=== PATIENT | female | born 1960 | race Caucasian/White ===

== ENCOUNTER 2020-11-04 16:10 | Emergency (ER) | payer OTHER ==
[~2020-11-04] VITALS: Ht 170.1 cm; Wt 110.0 kg
--- NOTE | 2020-11-04 16:45 | ED Lower Extremity ---
General Chief Complaint: Lower Extremity Stated Complaint: PAIN IN RIGHT LEG Nursing Triage Note: Pt wheeled into ER via wheelchair with complaint of lower right leg pain. 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 Pt states that she had excrutiating pain at a 10/10 until she was able to stop bearing weight on it. Pt has no obvious deformity, and states that pain is below the knee. Pt has good distal pulse. Nursing Sepsis Screen: No Definite Risk Source: patient Exam Limitations: no limitations (KELBY SEYMOUR APRN) History of Present Illness Date Seen by Provider: Nov 04, 2020 Time Seen by Provider: 16:45 Initial Comments To ER with severe right leg pain at the knee. When at rest she has no pain but with extension, flexion or weightbearing she has severe pain.. She had all of her weight on her right leg when she twisted to put an animal into the cage. 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 Onset: just prior to arrival Severity: moderate Pain/Injury Location: right knee Method of Injury: twisted Modifying Factors: Worse With Movement (KELBY SEYMOUR APRN) Allergies and Home Medications Patient Home Medication List Home Medication List Reviewed: Yes (KELBY SEYMOUR APRN) Review of Systems Constitutional: see HPI EENTM: see HPI Respiratory: no symptoms reported Cardiovascular: no symptoms reported Genitourinary: no symptoms reported Musculoskeletal: see HPI Skin: no symptoms reported Psychiatric/Neurological: No Symptoms Reported (Open to my barrel) (KELBY SEYMOUR APRN) Past Kdtfvgh-Fxfqvo-Vzushj Hx Patient Social History Alcohol Use: Occasionally Uses Alcohol Beverage of Choice: Beer Smoking Status: Current Everyday Smoker Type Used: Cigarettes Recent Infectious Disease Expo: No Recent Hopitalizations: No (KELBY SEYMOUR APRN) Immunizations Up To Date Tetanus Booster (TDap): Less than 5yrs PED Vaccines UTD: Yes (KELBY SEYMOUR APRN) Seasonal Allergies Seasonal Allergies: No (KELBY SEYMOUR APRN) Past Medical History Section, Gallbladder, Tonsillectomy Respiratory: No Cardiac: No Neurological: No Genitourinary: No Gastrointestinal: No Musculoskeletal: No Endocrine: No HEENT: No Cancer: No Psychosocial: No Integumentary: No Blood Disorders: No (KELBY SEYMOUR APRN) Physical Exam Vital Signs Vital Signs - First Documented 11/04/20 16:24 Temp 36.6 Pulse 69 Resp 18 B/P (MAP) 170/111 (130) Pulse Ox 97 O2 Delivery Room Air (ISAURA CRAWFORD MD) Vital Signs Capillary Refill : Less Than 3 Seconds (KELBY SEYMOUR APRN) Height, Weight, BMI Height: '" Weight: lbs. oz. kg; 38.00 BMI Method: General Appearance: WD/WN, no apparent distress Respiratory: no respiratory distress, no accessory muscle use Hips: bilateral hip non-tender, bilateral hip normal inspection, bilateral hip normal range of motion Legs: bilateral leg non-tender, bilateral leg normal inspection, bilateral leg normal range of motion Knees: right knee pain, right knee soft tissue tenderness, right knee swelling Ankles: bilateral ankle non-tender, bilateral ankle normal inspection, bilateral ankle normal range of motion Feet: bilateral foot non-tender Neurologic/Psychiatric: alert, normal mood/affect, oriented x 3 Skin: normal color, warm/dry (KELBY SEYMOUR APRN) Progress/Results/Core Measures Results/Orders Vital Signs/I&O 11/04/20 11/04/20 16:24 17:43 Temp 36.6 Pulse 69 69 Resp 18 18 B/P (MAP) 170/111 (130) 154/86 Pulse Ox 97 98 O2 Delivery Room Air Room Air (ISAURA CRAWFORD MD) Blood Pressure Mean: 130 Departure Communication (Admissions) Is an occupational health injury, will have her follow-up with them to arrange further evaluation with MRI if they feel it is appropriate. (KELBY SEYMOUR APRN) Impression Primary Impression: Internal derangement of right knee Disposition: HOME, SELF-CARE Condition: Stable Departure-Patient Inst. Decision time for Depature: 18:45 (KELBY SEYMOUR APRN) Referrals: YELITZA FERRER DO (PCP) Primary Care Physician Patient Instructions: Internal Derangement of the Knee Attending physician statement: I was physically present as attending physician in the emergency room at the time of this patient's care, but I was not directly involved in the patient's care. (ISAURA CRAWFORD MD) KELBY SEYMOUR APRN Nov 04, 2020 16:45 ISAURA CRAWFORD MD Nov 04, 2020 19:41
--- NOTE | 2020-11-04 16:46 | ED Lower Extremity ---
General Chief Complaint: Lower Extremity Stated Complaint: PAIN IN RIGHT LEG Nursing Triage Note: Pt wheeled into ER via wheelchair with complaint of lower right leg pain. 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 Pt states that she had excrutiating pain at a 10/10 until she was able to stop bearing weight on it. Pt has no obvious deformity, and states that pain is below the knee. Pt has good distal pulse. Nursing Sepsis Screen: No Definite Risk Source: patient Exam Limitations: no limitations (THANIA FLORES STUDENT) History of Present Illness Date Seen by Provider: Nov 04, 2020 Time Seen by Provider: 16:41 Initial Comments Mrs. Larkin is a 60 yo female that presents today for R leg pain. States the pain started a little over an hour ago at work when she was putting a dog into a kennel. States that she felt a sudden sharp, pain in the posterior side of her knee that she rated 100/10. States the pain is a very sharp pain, denies radiat ion. She did not feel any snapping or popping. Pain remains in this area. Pain is mostly with weight bearing and extension. Position of ease is sitting with knee flexed. She denies pain with other leg movements. She does have noticable swelling in the R leg. No loss of sensation or strength. She denies any problems with her knee in the past. (THANIA FLORES) Allergies and Home Medications Patient Home Medication List Home Medication List Reviewed: Yes (KELBY SEYMOUR APRN) Review of Systems Constitutional: No chills, No fever Respiratory: No cough, No phlegm, No short of breath Cardiovascular: No chest pain, No edema, No palpitations Gastrointestinal: No abdominal pain, No constipation, No diarrhea, No melena, No nausea, No vomiting Genitourinary: No dysuria, No hematuria Musculoskeletal: other (Postertior R knee pain) Skin: No rash Psychiatric/Neurological: Denies Headache, Denies Numbness (THANIA FLORES STUDENT) Past Hvliuem-Pgsvpd-Lkmfiq Hx Patient Social History Alcohol Use: Occasionally Uses Alcohol Beverage of Choice: Beer Smoking Status: Current Everyday Smoker Type Used: Cigarettes Recent Infectious Disease Expo: No Recent Hopitalizations: No (MARK,THANIA MED STUDENT) Immunizations Up To Date Tetanus Booster (TDap): Less than 5yrs PED Vaccines UTD: Yes (MARKTHANIA ROSE [employer] STUDENT) Seasonal Allergies Seasonal Allergies: No (MARKTHANIA [employer] STUDENT) Past Medical History Section, Gallbladder, Tonsillectomy Respiratory: No Cardiac: No Neurological: No Genitourinary: No Gastrointestinal: No Musculoskeletal: No Endocrine: No HEENT: No Cancer: No Psychosocial: No Integumentary: No Blood Disorders: No (THANIA FLORES [employer] STUDENT) Physical Exam Vital Signs Vital Signs - First Documented 11/04/20 16:24 Temp 36.6 Pulse 69 Resp 18 B/P (MAP) 170/111 (130) Pulse Ox 97 O2 Delivery Room Air (KELBY SEYMOUR APRN) Vital Signs Capillary Refill : Less Than 3 Seconds (MARKTHANIA [employer] STUDENT) Height, Weight, BMI Height: '" Weight: lbs. oz. kg; 38.00 BMI Method: General Appearance: WD/WN, no apparent distress, mild distress Cardiovascular: normal peripheral pulses, regular rate, rhythm, no edema, no murmur Respiratory: chest non-tender, lungs clear, normal breath sounds, no respiratory distress, no accessory muscle use Gastrointestinal: normal bowel sounds, non tender, soft, no organomegaly, no pulsatile mass Hips: bilateral hip non-tender Legs: right leg swelling Knees: left knee normal inspection, left knee normal range of motion; right knee other (Pain with extension and weight bearing on posterior side. No pain or instability with drawer test, varus or valgus forces) Ankles: bilateral ankle non-tender, bilateral ankle normal inspection, bilateral ankle normal range of motion, bilateral ankle no evidence of injury Feet: bilateral foot non-tender, bilateral foot normal inspection, bilateral foot normal range of motion, bilateral foot no evidence of injury Neurologic/Tendon: normal sensation Neurologic/Psychiatric: alert, normal mood/affect, oriented x 3 Skin: normal color, warm/dry (MARKTHANIA [employer] STUDENT) Progress/Results/Core Measures Results/Orders My Orders Orders - KELBY SEYMOUR APRN Knee, Right, 3 Views (11/04/20 16:45) (KELBY SEYMOUR APRN) Vital Signs/I&O 11/04/20 11/04/20 16:24 17:43 Temp 36.6 Pulse 69 69 Resp 18 18 B/P (MAP) 170/111 (130) 154/86 Pulse Ox 97 98 O2 Delivery Room Air Room Air (KELBY SEYMOUR APRN) Blood Pressure Mean: 130 Departure Communication (Admissions) I have seen the patient as well and agree with the exam findings. There is no obvious swelling of the knee no deformity no abrasion no erythema. Nontender to palpation anteriorly. She states she has no pain when at rest, only pain with weightbearing and movement. Strong pulse distally. We will give her crutches, have her follow-up with occupational health and if this fails to improve they will likely need to order an MRI to further evaluate the meniscus. This seemed to happen with a twisting mechanism to the knee while bearing weight, likely injuring the meniscus. (KELBY SEYMOUR APRN) Impression Primary Impression: Internal derangement of right knee Disposition: HOME, SELF-CARE Condition: Stable Departure-Patient Inst. Decision time for Depature: 17:26 (KELBY SEYMOUR APRN) Referrals: YELITZA FERRER DO (PCP) Primary Care Physician Patient Instructions: Internal Derangement of the Knee Add. Discharge Instructions: 1. Return to ER for any concerns 2. Ice pack to the area 1 hour on and 1 hour off. Crutches as needed in the meantime. Call occupational health in the morning for follow-up. All discharge instructions reviewed with patient and/or family. Voiced understanding. THANIA FLORES MED STUDENT Nov 04, 2020 16:46 KELBY SEYMOUR APRN Nov 04, 2020 17:27
--- NOTE | 2020-11-04 17:14 | Diagnostic Imaging Report ---
INDICATION: Pain in the posterior side of the right knee when putting weight on it. No injury or trauma. FINDINGS: Three views of the right knee demonstrate no fracture, subluxation, or joint effusion. Moderate medial joint space narrowing is present with [id number] osteophytes in all three compartments. IMPRESSION: There are degenerative changes of the right knee with no acute findings. Dictated by: Dictated on workstation # [id number]
[2020-11-04 17:43] VITALS: BP 154/86
== END 2020-11-04 17:44 | disposition home or self-care (01) ==
LOC: EDUNIT# 16:10 → ER 16:13
DX: M23.91 Unspecified internal derangement of right knee (principal); F17.210 Nicotine dependence, cigarettes, uncomplicated
CPT/HCPCS: 73562

== ENCOUNTER → 2020-11-11 | Outpatient (REF) | payer OTHER ==
--- NOTE | 2020-11-11 14:58 | Diagnostic Imaging Report ---
PROCEDURE: MRI right joint lower extremity without contrast. TECHNIQUE: Multiplanar, multisequence non contrast-enhanced MRI of the right lower extremity was accomplished. INDICATION: Pain posterior side, no known injury. EXAMINATION: MRI of the right knee without contrast on 11/11/2020 FINDINGS: The extensor mechanism is intact. The ACL and PCL intact. MCL and lateral collateral edematous complex intact. There is a diffuse degenerative type tear involving the posterior horn and body of the medial meniscus. 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 There is moderate to severe loss of cartilage in the medial joint compartment with associated spurring. Mild irregularity of the cartilage in the lateral compartment is noted. There is moderate loss of cartilage in the patellofemoral joint with subchondral cystic change in the patella. There is a small joint effusion. There is a tiny slitlike Fuentes's cyst. No acute osseous abnormality is appreciated. IMPRESSION: 1. 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 2. Tricompartmental degenerative findings as above. Dictated by: Dictated on workstation # [id number]
== END ==
LOC: OCC 10:28
PROVIDERS: ATTEND Nurse Practitioner Family
DX: S83.241A Other tear of medial meniscus, current injury, right knee, initial encounter (principal); M17.11 Unilateral primary osteoarthritis, right knee; X58.XXXA Exposure to other specified factors, initial encounter
CPT/HCPCS: 73721

== ENCOUNTER 2022-02-13 09:35 | Emergency (ER) | payer OTHER ==
[~2022-02-13] VITALS: Ht 170 cm; Wt 119.0 kg
[2022-02-13] MEDS ORDERED: LISI20TA26 (10:38)
[2022-02-13] MEDS ORDERED: CYCL10TA25 (10:38)
[2022-02-13] MEDS ORDERED: TRAM50TA3 (10:38)
[2022-02-13] MEDS ORDERED: cloNIDine 0.1 MG (CATAPRES) TAB PO ONE (11:00)
[2022-02-13] MEDS ORDERED: KETOROLAC 30 MG/ML VIAL IVP ONE (11:00)
--- NOTE | 2022-02-13 11:01 | ED Cardiac General ---
History of Present Illness General Chief Complaint: Cardiac/General Problems Stated Complaint: HIGH BP Nursing Triage Note: ARRIVED VIA AMB TO ROOM 07 WITH COMPLAINTS OF HYPERTENSION AND LEFT SHOULDER PAIN. STATES HER DR PLACED HER ON AN UNKNOWN BP MED, PAIN MED, AND MUSCLE RELAXER ON SUNDAY. Source: patient Exam Limitations: no limitations History of Present Illness Date Seen by Provider: Feb 13, 2022 Time Seen by Provider: 10:56 Initial Comments To ER with high blood pressure. At home its been 190s systolic. This was just found last week, prior to that she had not been checking it so it is unclear how long she has actually had hypertension. She has also had some left medial scapula pain for the past 1 to 2 weeks. She saw primary care Erica Brumfield NP at [facility] and was given tramadol for the pain and lisinopril 20 mg for the hypertension. She took a few doses of the tramadol but did not like the way it made her feel so she has not taken any in about 3 days. The left shoulder pain seems to be worse when she lays on her stomach with her left arm beneath her as her preferred position of sleeping. It seems to be better with her left arm held above her head. It did initially radiate down the left arm but that has subsided. The lisinopril 20 mg does not seem to have helped much in regards to her blood pressure, currently 187/111 heart rate 68. She does smoke about 6 to 10 cigarettes/day since age of 15. She has hypertension and obesity. No chest pain no shortness of breath no activity intolerance no diaphoresis. Timing/Duration: changing over time Severity: moderate Location: central Activities at Onset: none Prior CP/Workup: no prior chest pain Modifying Factors: worse with movement NTG SL ASSISTANT PROFESSOR OF GEOGRAPHY: No ASA po ASSISTANT PROFESSOR OF GEOGRAPHY: Yes (Baby aspirin daily) Associated Systoms: Chest Pain Allergies and Home Medications Allergies Coded Allergies: No Known Drug Allergies (Unverified , 02/13/22) Patient Home Medication List Home Medication List Reviewed: Yes Cyclobenzaprine HCl (Cyclobenzaprine HCl) 10 Mg Tablet, (Reported) Entered as Reported by: QUIN WALKER on 02/13/22 1038 Last Action: New Order Hydrochlorothiazide (Hydrochlorothiazide) 25 Mg Tablet, 25 MG PO DAILY Prescribed by: KELBY SEYMOUR on 02/13/22 1212 Lisinopril (Lisinopril) 20 Mg Tablet, (Reported) Entered as Reported by: QUIN WALKER on 02/13/22 1038 Last Action: New Order Tramadol HCl (Tramadol HCl) 50 Mg Tablet, (Reported) Entered as Reported by: QUIN WALKER on 02/13/22 1038 Last Action: New Order Review of Systems Review of Systems Constitutional: see HPI EENTM: No Symptoms Reported Respiratory: No Symptoms Reported; Denies Cough, Denies Shortness of Air, Denies SOA With Exertion, Denies SOA at Rest Cardiovascular: No Symptoms Reported; Denies Chest Pain Gastrointestinal: No Symptoms Reported Genitourinary: No Symptoms Reported Musculoskeletal: see HPI Skin: no symptoms reported Psychiatric/Neurological: No Symptoms Reported Endocrine: No Symptoms Reported Hematologic/Lymphatic: No Symptoms Reported Past Nohshob-Ddtxhv-Okklwh Hx Patient Social History Tobacco Use?: No Substance use?: No Alcohol Use?: Yes Alcohol Frequency: Rarely Immunizations Up To Date Tetanus Booster (TDap): Less than 5yrs PED Vaccines UTD: Yes COVID19 Vaccine Film Numberer: Cubiez Seasonal Allergies Seasonal Allergies: No Past Medical History Section, Gallbladder, Tonsillectomy Respiratory: No Cardiac: No Neurological: No Genitourinary: No Gastrointestinal: No Musculoskeletal: No Endocrine: No HEENT: No Cancer: No Psychosocial: No Integumentary: No Blood Disorders: No Physical Exam Vital Signs Vital Signs - First Documented 02/13/22 09:45 Temp 36.0 Pulse 69 Resp 16 B/P (MAP) 200/118 (145) Pulse Ox 97 O2 Delivery Room Air Capillary Refill : Less Than 3 Seconds Height, Weight, BMI Height: '" Weight: lbs. oz. kg; 41.00 BMI Method: General Appearance: No Apparent Distress, WD/WN HEENT: PERRL/EOMI, TMs Normal Neck: Full Range of Motion, Normal Inspection Respiratory: No Accessory Muscle Use, No Respiratory Distress Cardiovascular: Regular Rate, Rhythm, Normal Peripheral Pulses Gastrointestinal: Normal Bowel Sounds, Non Tender, Soft Extremity: Normal Capillary Refill, Normal Inspection Neurologic/Psychiatric: Alert, Oriented x3 Skin: Normal Color, Warm/Dry Progress/Results/Core Measures Results/Orders Lab Results Laboratory Tests Test 02/13/22 11:08 Range/Units White Blood Count 9.9 4.3-11.0 10^3/uL Red Blood Count 5.61 H 3.80-5.11 10^6/uL Hemoglobin 16.5 H 11.5-16.0 g/dL Hematocrit 50 35-52 % Mean Corpuscular Volume 89 80-99 fL Mean Corpuscular Hemoglobin 29 25-34 pg Mean Corpuscular Hemoglobin Concent 33 32-36 g/dL Red Cell Distribution Width 13.8 10.0-14.5 % Platelet Count 324 130-400 10^3/uL Mean Platelet Volume 8.9 L 9.0-12.2 fL Immature Granulocyte % (Auto) 1 % Neutrophils (%) (Auto) 58 42-75 % Lymphocytes (%) (Auto) 30 12-44 % Monocytes (%) (Auto) 7 0-12 % Eosinophils (%) (Auto) 2 0-10 % Basophils (%) (Auto) 2 0-10 % Neutrophils # (Auto) 5.7 1.8-7.8 10^3/uL Lymphocytes # (Auto) 3.0 1.0-4.0 10^3/uL Monocytes # (Auto) 0.7 0.0-1.0 10^3/uL Eosinophils # (Auto) 0.2 0.0-0.3 10^3/uL Basophils # (Auto) 0.2 H 0.0-0.1 10^3/uL Immature Granulocyte # (Auto) 0.1 0.0-0.1 10^3/uL Prothrombin Time 13.0 12.2-14.7 SEC INR Comment 0.9 0.8-1.4 Activated Partial Thromboplast Time 32 24-35 SEC Sodium Level 145 135-145 MMOL/L Potassium Level 4.0 3.6-5.0 MMOL/L Chloride Level 105 98-107 MMOL/L Carbon Dioxide Level 25 21-32 MMOL/L Anion Gap 15 H 5-14 MMOL/L Blood Urea Nitrogen 14 7-18 MG/DL Creatinine 0.80 0.60-1.30 MG/DL Estimat Glomerular Filtration Rate 84 BUN/Creatinine Ratio 18 Glucose Level 87 70-105 MG/DL Calcium Level 9.4 8.5-10.1 MG/DL Corrected Calcium 9.2 8.5-10.1 MG/DL Magnesium Level 2.0 1.6-2.4 MG/DL Total Bilirubin 0.6 0.1-1.0 MG/DL Aspartate Amino Transf (AST/SGOT) 29 5-34 U/L Alanine Aminotransferase (ALT/SGPT) 36 0-55 U/L Alkaline Phosphatase 102 40-136 U/L Myoglobin 37.4 10.0-92.0 NG/ML Troponin I < 0.028 <0.028 NG/ML B-Type Natriuretic Peptide 13.4 <100.0 PG/ML Total Protein 7.4 6.4-8.2 GM/DL Albumin 4.2 3.2-4.5 GM/DL My Orders Orders - KELBY SEYMOUR PHYSICIAN RECRUITER Cbc With Automated Diff (02/13/22 10:54) Magnesium (02/13/22 10:54) Chest 1 View, Ap/Pa Only (02/13/22 10:54) Comprehensive Metabolic Panel (02/13/22 10:54) Myoglobin Serum (02/13/22 10:54) Protime With Inr (02/13/22 10:54) Partial Thromboplastin Time (02/13/22 10:54) O2 (02/13/22 10:54) Monitor-Rhythm Ecg Trace Only (02/13/22 10:54) Lipid Panel (02/14/22 06:00) Ed Iv/Invasive Line Start (02/13/22 10:54) Bnp [place] (02/13/22 10:54) Troponin I [place] (02/13/22 10:54) Clonidine Tablet (Catapres Tablet) (02/13/22 11:00) Ketorolac Injection (Toradol Injection) (02/13/22 11:00) Amlodipine Tablet (Norvasc Tablet) (02/13/22 12:00) Medications Given in ED Current Medications Medications Dose Ordered Sig/Vania Route Start Time Stop Time Status Last Admin Dose Admin Amlodipine Besylate 10 mg ONCE ONCE PO 02/13/22 12:00 02/13/22 12:01 DC 02/13/22 12:01 10 MG Clonidine HCl 0.2 mg ONCE ONCE PO 02/13/22 11:00 02/13/22 11:01 DC 02/13/22 11:02 0.2 MG Vital Signs/I&O 02/13/22 09:45 Temp 36.0 Pulse 69 Resp 16 B/P (MAP) 200/118 (145) Pulse Ox 97 O2 Delivery Room Air Blood Pressure Mean: 145 Departure Communication (Admissions) 1150-over 1 hour since the 0.2 mg of clonidine given and blood pressure still 170/112. Order for 2 mg Norvasc as well at this time. NAME: KELLEY HERNANDEZ MED REC#: [id number] PT STATUS: REG ER : 1960 PHYSICIAN: KELBY SEYMOUR APRN ADMIT DATE: 02/13/22/ER Draft Date of Exam:02/13/22 CHEST 1 VIEW, AP/PA ONLY EXAMINATION: Chest,1 view. HISTORY: Chest pain. COMPARISON: None available. FINDINGS: Heart size and pulmonary vasculature are normal. The lungs are clear without consolidation, pleural effusion, or pneumothorax. The osseous structures are intact. IMPRESSION: No acute radiographic abnormality in the chest. Dictated on workstation # [id number] Dict: 02/13/22 1154 Trans: 02/13/22 1155 [id number] Interpreted by: ARMANDO MUNOZ DO Electronically signed by: Impression Primary Impression: Hypertension Additional Impression: Cervical radiculopathy Disposition: HOME, SELF-CARE Condition: Stable Departure-Patient Inst. Decision time for Depature: 11:01 Referrals: SHAI CHAVES DO (PCP/Family) Primary Care Physician Patient Instructions: High Blood Pressure (DC) Add. Discharge Instructions: 1. Add the new blood pressure medication in addition to the current blood pressure medication. Follow-up with primary care later this week. If pain in the shoulder persists then discuss getting an MRI of the neck to look for a bulging disc. All discharge instructions reviewed with patient and/or family. Voiced understanding. Scripts Hydrochlorothiazide (Hydrochlorothiazide) 25 Mg Tablet 25 MG PO DAILY, #30 TAB Prov: KELBY SEYMOUR APRN 02/13/22 Work/School Note: Work Release Form Date Seen in the Emergency Department: Feb 13, 2022 Return to Work: Feb 14, 2022 Copy Copies To 1: WOODY BALL MD, PETER J APRN Feb 13, 2022 11:01
[2022-02-13 11:15] LABS: BASOPHILS # (AUTO) 0.2 10^3/uL (0.0-0.1); BASOPHILS % (AUTO) 2 % (0-10); EOSINOPHILS # (AUTO) 0.2 10^3/uL (0.0-0.3); EOSINOPHILS % (AUTO) 2 % (0-10); HEMATOCRIT 50 % (35-52); HEMOGLOBIN 16.5 g/dL (11.5-16.0); LYMPHOCYTES % (AUTO) 30 % (12-44); MEAN CORPUSCULAR HEMOGLOBIN 29 pg (25-34); MEAN CORPUSCULAR HGB CONC 33 g/dL (32-36); MEAN CORPUSCULAR VOLUME 89 fL (80-99); MEAN PLATELET VOLUME 8.9 fL (9.0-12.2); MONOCYTES # (AUTO) 0.7 10^3/uL (0.0-1.0); MONOCYTES % (AUTO) 7 % (0-12); NEUTROPHILS # (AUTO) 5.7 10^3/uL (1.8-7.8); NEUTROPHILS % (AUTO) 58 % (42-75); PLATELET COUNT 324 10^3/uL (130-400); WHITE BLOOD COUNT 9.9 10^3/uL (4.3-11.0)
[2022-02-13 11:31] LABS: ALBUMIN 4.2 GM/DL (3.2-4.5); INR 0.9 (0.8-1.4)
[2022-02-13 11:32] LABS: CALCIUM 9.4 MG/DL (8.5-10.1)
[2022-02-13 11:33] LABS: TOTAL PROTEIN 7.4 GM/DL (6.4-8.2)
[2022-02-13 11:35] LABS: BILIRUBIN,TOTAL 0.6 MG/DL (0.1-1.0)
[2022-02-13 11:37] LABS: CREATININE SERUM 0.8 MG/DL (0.60-1.30)
--- NOTE | 2022-02-13 11:55 | Diagnostic Imaging Report ---
EXAMINATION: Chest,1 view. HISTORY: Chest pain. COMPARISON: None available. FINDINGS: Heart size and pulmonary vasculature are normal. The lungs are clear without consolidation, pleural effusion, or pneumothorax. The osseous structures are intact. IMPRESSION: No acute radiographic abnormality in the chest. Dictated by: Dictated on workstation # [id number]
[2022-02-13] MEDS ORDERED: amLODIPine 10 MG (NORVASC) TAB PO ONE (12:00)
[2022-02-13] MEDS ORDERED: HYDR25TA4 PO (12:12)
[2022-02-13 12:34] VITALS: BP 175/98
== END 2022-02-13 12:34 | disposition home or self-care (01) ==
LOC: EDUNIT# 09:35 → ER 09:37
DX: I10 Essential (primary) hypertension (principal); M54.12 Radiculopathy, cervical region; E66.9 Obesity, unspecified; Z68.41 Body mass index [BMI] 40.0-44.9, adult
CPT/HCPCS: 36415; 71045; 80053; 83735; 83874; 83880; 84484; 85025; 85610; 85730; 93005

== ENCOUNTER → 2022-02-27 | Outpatient (CLI) | payer OTHER ==
[~2022-02-27] MED LIST: CATHETER FLUSH 10 ML SYR IV PRN; CYCL10TA25; HOLD METFORMIN - RECEIVED CONTRAST 20 ML VIAL IV SCH; HYDR25TA4 PO; IOHEXOL 350 MG/ML 100 ML (OMNIPAQUE 350) VIAL IV ONE; LISI20TA26; NS 100 ML (IVPB) BAG IV ONE; TRAM50TA3
--- NOTE | 2022-02-27 11:18 | Diagnostic Imaging Report ---
INDICATION: Hydronephrosis. Axial imaging through the abdomen was performed after the administration of intravenous contrast utilizing CT angiography protocol. Multiplanar, 3-D and MIP reformations were also performed. No prior studies are available for comparison. The lung bases are clear. The aorta is normal caliber. There are single renal arteries bilaterally. No renal artery stenosis is detected. The celiac and SMA as well as JOZEF are widely patent. Common iliac arteries are widely patent. No stenosis is detected. The liver is unremarkable. Gallbladder surgically absent. There is no biliary ductal dilatation. Pancreas and spleen are unremarkable. No adrenal mass is detected. Kidneys are unremarkable. Bowel loops are normal caliber. There is no evidence of obstruction. There is no ascites. IMPRESSION: Unremarkable CT angiogram of the abdomen. There is no evidence of renal artery stenosis. Dictated by: Dictated on workstation # [id number]
== END ==
LOC: RAD 08:01
PROVIDERS: ATTEND Family Medicine
DX: N13.30 Unspecified hydronephrosis (principal); I10 Essential (primary) hypertension
CPT/HCPCS: 74175